=== PATIENT | male | born 1985 | race Caucasian/White ===

== ENCOUNTER 2019-01-17 16:26 | Emergency (ER) | payer OTHER ==
[2019-01-17] MEDS ORDERED: IV NORMAL SALINE 1,000ML 1,000 ML IV ONE (16:45)
[2019-01-17 16:58] LABS: BASO # 0.1 x10^3/uL (0.0-0.2); BASO % 1 % (0-3); EOS # 0.2 x10^3/uL (0.0-0.7); EOS % 4 % (0-3); HEMATOCRIT 42.5 % (39.0-53.0); HEMOGLOBIN 14.4 g/dL (13.0-17.5); LYMPH # 2.6 x10^3/uL (1.0-4.8); LYMPH % 40 % (24-48); MEAN CORPUSCULAR HEMOGLOBIN 32 pg (25-35); MEAN CORPUSCULAR HGB CONC 34 g/dL (31-37); MEAN CORPUSCULAR VOLUME 95 fL (79-100); MONO # 0.5 x10^3/uL (0.0-1.1); MONO % 8 % (0-9); NEUT # 3.1 x10^3uL (1.8-7.7); NEUT % 47 % (31-73); PLATELET COUNT 276 x10^3/uL (140-400); RED BLOOD COUNT 4.48 x10^6/uL (4.30-5.70); RED CELL DISTRIBUTION WIDTH 13.1 % (11.5-14.5); WHITE BLOOD COUNT 6.5 x10^3/uL (4.0-11.0)
[2019-01-17 17:07] LABS: ALBUMIN 4.4 g/dL (3.4-5.0); ALBUMIN/GLOBULIN RATIO 1.3 (1.0-1.7); CALCIUM 9.2 mg/dL (8.5-10.1); GFR 86.1; POTASSIUM 4.2 mmol/L (3.5-5.1); TOTAL BILIRUBIN 0.4 mg/dL (0.2-1.0); TOTAL PROTEIN 7.8 g/dL (6.4-8.2)
--- NOTE | 2019-01-17 17:12 | RAD ---
Exam: Ultrasound scrotum Indication: Pain Technique: Real-time grayscale and color Doppler images of the scrotum were obtained by the department vice president underwriting. Comparisons: None FINDINGS: Right testicle measures 5.1 x 2.7 x 3.3 cm. Left testicle measures 4.4 x 2.6 x 3.4 cm. Arterial and venous waveforms are identified within the left testicle. Symmetric color Doppler is identified within the testicles bilaterally. Small left-sided hydrocele. IMPRESSION: 1. Arterial and venous waveforms identified within the left testicle. No evidence for torsion on the left. 2. Right testicle has symmetric color Doppler flow and a normal sonographic appearance, however spectral waveforms were not performed. If there are concerns for right testicular torsion spectral Doppler waveforms can be obtained at no extra charge to the patient. 3. Small left-sided hydrocele. Electronically signed by: Alejandrina Motta MD (01/17/2019 5:09 PM) [facility]
--- NOTE | 2019-01-17 17:16 | PHYS DOC ---
Past History Past Medical History: No Pertinent History Past Surgical History: Other Additional Past Surgical Histo: HERNIA REPAIR Alcohol Use: None Drug Use: None Adult General Chief Complaint Chief Complaint: TESTICULAR PAIN OR INJURY [facility] HPI 33-year-old male presents with left testicle pain. The patient states that he got up this morning and had some mild testicular discomfort on the left. He was feeling completely normal yesterday. By 8AM, the pain was starting to increase. He has had worsening pain throughout the day. It is most sensitive with squeezing and lifting of the testicle. It is not enlarged compared to the right. Patient denies any urethral discharge. He has not had sex in several months because his way from his . He has no concern for STD. He denies fever or chills. He has had no dysuria or increased frequency. Has never had testicle problems in the past. Review of Systems Review of Systems Constitutional: Denies fever or chills [] Eyes: Denies change in visual acuity, redness, or eye pain [] HENT: Denies nasal congestion or sore throat [] Respiratory: Denies cough or shortness of breath [] Cardiovascular: No additional information not addressed in HPI [] GI: Denies abdominal pain, nausea, vomiting, bloody stools or diarrhea [] : Left testicle pain[] Musculoskeletal: Denies back pain or joint pain [] Integument: Denies rash or skin lesions [] Neurologic: Denies headache, focal weakness or sensory changes [] Endocrine: Denies polyuria or polydipsia [] All other systems were reviewed and found to be within normal limits, except as documented in this note. Current Medications Current Medications Current Medications Medications (Trade) Dose Ordered Sig/[facility] Start Time Stop Time Status Last Admin Dose Admin Sodium Chloride 1,000 ml @ 1,000 mls/hr 1X ONCE 01/17/19 16:45 01/17/19 17:44 Allergies Allergies Allergies Coded Allergies Type Severity Reaction Last Updated Verified No Known Drug Allergies 01/17/19 No Physical Exam Physical Exam Constitutional: Well developed, well nourished, no acute distress, non-toxic appearance. [] HENT: Normocephalic, atraumatic, bilateral external ears normal, oropharynx moist, no oral exudates, nose normal. [] Eyes: PERRLA, EOMI, conjunctiva normal, no discharge. [] Neck: Normal range of motion, no tenderness, supple, no stridor. [] Cardiovascular:Heart rate regular rhythm, no murmur [] Lungs & Thorax: Bilateral breath sounds clear to auscultation [] Abdomen: Bowel sounds normal, soft, no tenderness, no masses, no pulsatile masses. [] Skin: Warm, dry, no erythema, no rash. [] Back: No tenderness, no CVA tenderness. [] Extremities: No tenderness, no cyanosis, no clubbing, ROM intact, no edema. [] Neurologic: Alert and oriented X 3, normal motor function, normal sensory function, no focal deficits noted. [] Psychologic: Affect normal, judgement normal, mood normal. : Uncircumcised, 2 normally descended testicles, no obvious swelling, no scrotal erythema. Pain with palpation of the underside of the testicle[] Current Patient Data Vital Signs Vital Signs Date Time Temp Pulse Resp B/P (MAP) Pulse Ox O2 Delivery O2 Flow Rate FiO2 01/17/19 16:30 98.3 54 16 99 Room Air Lab Results Laboratory Tests Test 01/17/19 16:40 White Blood Count 6.5 x10^3/uL (4.0-11.0) Red Blood Count 4.48 x10^6/uL (4.30-5.70) Hemoglobin 14.4 g/dL (13.0-17.5) Hematocrit 42.5 % (39.0-53.0) Mean Corpuscular Volume 95 fL (79-100) Mean Corpuscular Hemoglobin 32 pg (25-35) Mean Corpuscular Hemoglobin Concent 34 g/dL (31-37) Red Cell Distribution Width 13.1 % (11.5-14.5) Platelet Count 276 x10^3/uL (140-400) Neutrophils (%) (Auto) 47 % (31-73) Lymphocytes (%) (Auto) 40 % (24-48) Monocytes (%) (Auto) 8 % (0-9) Eosinophils (%) (Auto) 4 % (0-3) H Basophils (%) (Auto) 1 % (0-3) Neutrophils # (Auto) 3.1 x10^3uL (1.8-7.7) Lymphocytes # (Auto) 2.6 x10^3/uL (1.0-4.8) Monocytes # (Auto) 0.5 x10^3/uL (0.0-1.1) Eosinophils # (Auto) 0.2 x10^3/uL (0.0-0.7) Basophils # (Auto) 0.1 x10^3/uL (0.0-0.2) Sodium Level 139 mmol/L (136-145) Potassium Level 4.2 mmol/L (3.5-5.1) Chloride Level 101 mmol/L (98-107) Carbon Dioxide Level 31 mmol/L (21-32) Anion Gap 7 (6-14) Blood Urea Nitrogen 22 mg/dL (8-26) Creatinine 1.0 mg/dL (0.7-1.3) Estimated GFR (Cockcroft-Gault) 86.1 BUN/Creatinine Ratio 22 (6-20) H Glucose Level 96 mg/dL (70-99) Calcium Level 9.2 mg/dL (8.5-10.1) Total Bilirubin 0.4 mg/dL (0.2-1.0) Aspartate Amino Transferase (AST) 22 U/L (15-37) Alanine Aminotransferase (ALT) 30 U/L (16-63) Alkaline Phosphatase 60 U/L (46-116) Total Protein 7.8 g/dL (6.4-8.2) Albumin 4.4 g/dL (3.4-5.0) Albumin/Globulin Ratio 1.3 (1.0-1.7) EKG EKG [] Radiology/Procedures Radiology/Procedures [] Impressions: Exam: Ultrasound scrotum Indication: Pain Technique: Real-time grayscale and color Doppler images of the scrotum were obtained by the department hot header operator. Comparisons: None FINDINGS: Right testicle measures 5.1 x 2.7 x 3.3 cm. Left testicle measures 4.4 x 2.6 x 3.4 cm. Arterial and venous waveforms are identified within the left testicle. Symmetric color Doppler is identified within the testicles bilaterally. Small left-sided hydrocele. IMPRESSION: 1. Arterial and venous waveforms identified within the left testicle. No evidence for torsion on the left. 2. Right testicle has symmetric color Doppler flow and a normal sonographic appearance, however spectral waveforms were not performed. If there are concerns for right testicular torsion spectral Doppler waveforms can be obtained at no extra charge to the patient. 3. Small left-sided hydrocele. Electronically signed by: Evelyn Kelley MD (01/17/2019 5:09 PM) [facility] DICTATED AND SIGNED BY: EVELYN KELLEY MD DATE: 01/17/19 [id number] CC: HIMANSHU GILBERT DO; WILFREDO SIMMONS DO ~ Course & Med Decision Making Course & Med Decision Making Pertinent Labs and Imaging studies reviewed. (See chart for details) The patient's ultrasound is negative for torsion. His labs are unremarkable. His urinalysis is negative for infection. I still suspect possible epididymitis I will treat him with levofloxacin 500 mg for 10 days. He is stable for discharge at this time. [] Dragon Disclaimer Dragon Disclaimer This electronic medical record was generated, in whole or in part, using a voice recognition dictation system. Departure Departure: Impression: Primary Impression: Epididymitis Disposition: 01 HOME, SELF-CARE Condition: STABLE Referrals: HIMANSHU GILBERT DO (PCP) Patient Instructions: Epididymitis Scripts Levofloxacin (LEVOFLOXACIN) 500 Mg Tablet 1 TAB PO DAILY for epididymitis, #10 TAB Prov: WILFREDO SIMMONS DO 01/17/19 WILFREDO SIMMONS DO Jan 17, 2019 17:16
[2019-01-17 18:00] VITALS: BP 134/80
[2019-01-17 18:07] LABS: BACTERIA,URINE 0 /HPF (0-FEW); BILIRUBIN,URINE NEG (NEG); CLARITY,URINE CLEAR; COLOR,URINE STRAW; GLUCOSE,URINE NEG (NEG); NITRITE,URINE NEG (NEG); RBC,URINE 0 /HPF (0-2); UROBILINOGEN,URINE 0.2 mg/dL (0.2 mg/dL); WBC,URINE 0 /HPF (0-4)
[2019-01-17] MEDS ORDERED: LEVO500T8 PO (18:11)
== END 2019-01-17 18:23 | disposition home or self-care (01) ==
LOC: ER 16:26
DX: N45.1 Epididymitis (principal); N43.3 Hydrocele, unspecified
CPT/HCPCS: 36415; 76870; 80053; 81001; 85025; 99285-25; J7030